=== PATIENT | female | born 1995 | race Caucasian/White ===

== ENCOUNTER 2018-08-08 17:03 | Emergency (ER) | payer OTHER ==
[~2018-08-08] VITALS: Ht 160 cm; Wt 79.5 kg
[2018-08-08] MEDS ORDERED: ALBU8HFA IH (18:11)
[2018-08-08] MEDS: IBUPROFEN 800 MG TABLET PO ONE (19:40)
[2018-08-08 20:52] VITALS: BP 118/78
== END 2018-08-08 20:54 | disposition home or self-care (01) ==
LOC: EMS 17:04
DX: S60.221A Contusion of right hand, initial encounter (principal); S50.02XA Contusion of left elbow, initial encounter; S00.83XA Contusion of other part of head, initial encounter; F10.10 Alcohol abuse, uncomplicated; J45.909 Unspecified asthma, uncomplicated; Y90.9 Presence of alcohol in blood, level not specified; X58.XXXA Exposure to other specified factors, initial encounter; Y93.89 Activity, other specified; Y92.89 Other specified places as the place of occurrence of the external cause; Y99.8 Other external cause status

== ENCOUNTER 2021-10-05 09:53 | Emergency (ER) | payer OTHER ==
[~2021-10-05] VITALS: Ht 160 cm; Wt 84.1 kg
[~2021-10-05 09:53] MED LIST: ALBU8HFA IH
[2021-10-05] MEDS ORDERED: DiphenhydrAMINE HCL 50 MG/ML VIAL IVP ONE (10:00)
[2021-10-05] MEDS ORDERED: SODIUM CHLORIDE 0.9% 1,000 ML IV ONE (10:00)
[2021-10-05] MEDS ORDERED: MethylPREDNISolone SOD SUCC 125 MG/2 ML VIAL IVP ONE (10:00)
[2021-10-05] MEDS ORDERED: FAMOTIDINE 10 MG/ML 2 ML VIAL IVP ONE (10:00)
[2021-10-05 12:14] VITALS: BP 113/61
[2021-10-05] MEDS ORDERED: DIPH25CA85 PO (13:27)
[2021-10-05] MEDS ORDERED: PRED-554 PO (13:27)
== END 2021-10-05 13:40 | disposition home or self-care (01) ==
LOC: EMS 09:53
DX: K12.2 Cellulitis and abscess of mouth (principal)
CPT/HCPCS: 96361; 96374; 96375; 99291; J1200; J2930; J3490; J7030

== ENCOUNTER 2021-12-21 22:42 | Inpatient (IN) | payer OTHER ==
[~2021-12-21] VITALS: Ht 160 cm; Wt 103.6 kg
[~2021-12-21 22:42] MED LIST changes: +DIPH25CA85 PO; +PRED-554 PO
[2021-12-21] MEDS ORDERED: ALBUTEROL SULFATE 5 MG/ML 20 ML NEB SOLN [BULK] NEB ONE (23:15)
[2021-12-21] MEDS ORDERED: IPRATROPIUM BROMIDE 0.5 MG/2.5 ML NEB SOLUTION NEB ONE (23:15)
[2021-12-21 23:26] LABS: COVID AG,FIA SOURCE NASAL SWAB
[2021-12-21] MEDS ORDERED: PredniSONE 20 MG TABLET PO ONE (23:30)
[2021-12-21 23:42] LABS: BASOPHILS % (AUTO) 0.5 % (0.0-2.0); EOSINOPHILS % (AUTO) 0.3 % (1.0-6.0); HEMATOCRIT 36.7 % (36-46); HEMOGLOBIN 12.5 g/dL (12.0-16.0); LYMPHOCYTES # (AUTO) 3.8 K/uL (1.0-4.8); LYMPHOCYTES % (AUTO) 24.3 % (22.0-44.0); MEAN CORPUSCULAR HGB CONC 33.9 G/dL (31.0-37.0); MEAN CORPUSCULAR VOLUME 88 fL (80-100); MONOCYTES # (AUTO) 1.1 K/uL (0.1-1.0); MONOCYTES % (AUTO) 6.9 % (2.0-9.0); NEUTROPHILS # (AUTO) 10.7 K/uL (1.8-7.7); PLATELET COUNT (AUTO) 475 K/uL (150-450); RED BLOOD CELL COUNT(AUTO) 4.16 MIL/uL (4.00-5.20); RED CELL DISTRIBUTION WIDTH 12.6 % (11.5-14.5)
[2021-12-21 23:50] LABS: ANION GAP 9 mmol/L (8-16); CALCIUM, TOTAL 8.8 mg/dL (8.8-10.5); CARBON DIOXIDE 27 mmol/L (22-29); CHLORIDE 102 mmol/L (98-107); GLOMERULAR FILTR. RATE CALC > 60 mL/min (>60); GLUCOSE,RANDOM 102 mg/dL (70-110); POTASSIUM 3.7 mmol/L (3.5-5.1); SODIUM SERUM 138 mmol/L (136-145); UREA NITROGEN, BLOOD 13 mg/dL (7-18)
[2021-12-22] VITALS (10 sets, daily range): BP systolic 101–127; BP diastolic 68–78
[2021-12-22 00:01] LABS: B-TYPE NATRIURETIC PEPTIDE 23 pg/mL (0-100); HCG,QUANTITATIVE < 1 mIU/mL (0-6)
[2021-12-22] MEDS ORDERED: ACETAMINOPHEN 500 MG TABLET PO ONE (00:45)
[2021-12-22] MEDS ORDERED: BENZONATATE 100 MG CAPSULE PO ONE (00:45)
[2021-12-22] MEDS ORDERED: RINGERS SOLUTION,LACTATED 1,000 ML IV ONE ×2 (00:45→03:30)
[2021-12-22] MEDS ORDERED: SODIUM CHLORIDE 0.9% 100 ML ONE (01:24)
[2021-12-22] MEDS ORDERED: IOHEXOL 350 MG/ML 100 ML VIAL ONE (01:30)
[2021-12-22] MEDS ORDERED: IOHEXOL 350 MG/ML 75 ML VIAL ONE (01:30)
[2021-12-22 02:29] LABS: FREE T4 (FREE THYROXINE) 1.2 ng/dL (0.76-1.46); THYROID STIMULATING HORMONE 2.02 uIU/mL (0.36-3.74)
[2021-12-22] MEDS ORDERED: CefTRIAXone SODIUM 2 GM in DEXTROSE 5%-WATER 50 ML IV ONE (04:00)
[2021-12-22] MEDS ORDERED: GuaiFENesin/D-METHORPHAN [SUGAR-FREE] 200-20MG/10 ML SYRUP UDCUP PO ONE (04:00)
[2021-12-22] MEDS ORDERED: RACEPINEPHRINE HCL 2.25% 0.5 ML NEB SOLUTION NEB ONE (04:45)
[2021-12-22] MEDS ORDERED: DEXAMETHASONE SOD PHOS 4 MG/ML VIAL IVP ONE ×2 (04:45→05:45)
[2021-12-22] MEDS ORDERED: VANCOMYCIN HCL 1.5 GM in DEXTROSE 5%-WATER 250 ML IV ONE ×2 (04:45→14:00)
[2021-12-22 05:28] LABS: LACTIC ACID 6.7 mmol/L (0.4-2.0)
[2021-12-22] MEDS ORDERED: SODIUM CHLORIDE 0.9% 1,000 ML IV ONE (05:45)
[2021-12-22] MEDS ORDERED: AMPICILLIN SODIUM/SULBACTAM NA 3 GM in SODIUM CHLORIDE 0.9% 100 ML IV ONE (05:45)
[2021-12-22] MEDS: AMPICILLIN SODIUM/SULBACTAM NA 3 GM in SODIUM CHLORIDE 0.9% 100 ML IV SCH ×3 (09:32→22:21)
[2021-12-22] MEDS: SODIUM CHLORIDE 0.9% 1,000 ML IV SCH ×2 (09:32→18:54)
[2021-12-22] MEDS: DEXAMETHASONE SOD PHOS 4 MG/ML VIAL IVP SCH ×3 (11:18→23:54)
[2021-12-22] MEDS ORDERED: BISACODYL 10 MG RECTAL RECTAL SUPPOSITORY PR PRN (11:30)
[2021-12-22] MEDS ORDERED: ONDANSETRON HCL 4 MG/2 ML VIAL IVP PRN (11:30)
[2021-12-22] MEDS ORDERED: ALBUTEROL SULFATE 2.5 MG/0.5 ML NEB SOLUTION NEB PRN (11:30)
[2021-12-22] MEDS ORDERED: IPRATROPIUM BROMIDE 0.5 MG/2.5 ML NEB SOLUTION NEB PRN (11:30)
[2021-12-22] MEDS: PANTOPRAZOLE SODIUM 40 MG/VIAL IVP SCH (12:23)
[2021-12-22] MEDS ORDERED: VANCOMYCIN HCL 1.25 GM in DEXTROSE 5%-WATER 250 ML IV ONE (14:00)
[2021-12-22] MEDS ORDERED: LIDOCAINE 4% 50 ML SOLUTION TP ONE (18:15)
[2021-12-22] MEDS ORDERED: OXYMETAZOLINE HCL 0.05% 15 ML NASAL SPRAY NASAL ONE (18:15)
[2021-12-22] MEDS: VANCOMYCIN HCL 1 GM in DEXTROSE 5%-WATER 250 ML IV SCH (23:53)
[2021-12-23] MEDS ORDERED: VANCOMYCIN HCL 1 GM/D5% WATER 200 ML IV SCH
[2021-12-23] MEDS: AMPICILLIN SODIUM/SULBACTAM NA 3 GM in SODIUM CHLORIDE 0.9% 100 ML IV SCH ×4 (02:34→21:11)
[2021-12-23 04:49] VITALS: BP 125/69
[2021-12-23] MEDS: DEXAMETHASONE SOD PHOS 4 MG/ML VIAL IVP SCH ×3 (06:18→18:45)
[2021-12-23 07:08] VITALS: BP 124/77
[2021-12-23 08:17] LABS: BASOPHILS % (AUTO) 0.1 % (0.0-2.0); EOSINOPHILS % (AUTO) 0.2 % (1.0-6.0); HEMATOCRIT 35.6 % (36-46); LYMPHOCYTES # (AUTO) 1.4 K/uL (1.0-4.8); LYMPHOCYTES % (AUTO) 6.1 % (22.0-44.0); MEAN CORPUSCULAR HEMOGLOBIN 30.4 pg (26.0-34.0); MEAN CORPUSCULAR HGB CONC 33.9 G/dL (31.0-37.0); MEAN CORPUSCULAR VOLUME 90 fL (80-100); MONOCYTES # (AUTO) 0.6 K/uL (0.1-1.0); MONOCYTES % (AUTO) 2.7 % (2.0-9.0); NEUTROPHILS # (AUTO) 20.4 K/uL (1.8-7.7); PLATELET COUNT (AUTO) 463 K/uL (150-450); RED BLOOD CELL COUNT(AUTO) 3.96 MIL/uL (4.00-5.20); RED CELL DISTRIBUTION WIDTH 12.8 % (11.5-14.5)
[2021-12-23 08:19] LABS: NEUTROPHILS % (AUTO) 90.9 % (40.0-70.0)
[2021-12-23 08:28] LABS: APPEARANCE,URINE CLEAR (CLEAR); BILIRUBIN,URINE NEGATIVE (NEGATIVE); GLUCOSE, URINE (UA) NEGATIVE (NEGATIVE); KETONES,URINE NEGATIVE (NEGATIVE); LEUKOCYTE ESTERASE ,URINE NEGATIVE (NEGATIVE); NITRATE,URINE NEGATIVE (NEGATIVE); OCCULT BLOOD,URINE NEGATIVE (NEGATIVE); PH,URINE 6.5 (5.0-8.0); PROTEIN,URINE NEGATIVE (NEGATIVE); SPECIFIC GRAVITIY, URINE 1.014 (1.003-1.030); UROBILINOGEN,URINE <=1.0 mg/dL (<=1.0)
[2021-12-23 08:34] LABS: AMPHET/METH SCREEN,URINE POSITIVE (NEGATIVE); BARBITURATE SCREEN, URINE NEGATIVE (NEGATIVE); BENZODIAZEPINES SCREEN,URINE NEGATIVE (NEGATIVE); CANNABINOID SCREEN,URINE NEGATIVE (NEGATIVE); COCAINE SCREEN,URINE NEGATIVE (NEGATIVE); METHADONE SCREEN, URINE NEGATIVE (NEGATIVE); OPIATE SCREEN,URINE NEGATIVE (NEGATIVE); PHENCYCLIDINE SCREEN,URINE NEGATIVE (NEGATIVE)
[2021-12-23 08:43] LABS: ALANINE AMINOTRANSFERASE 20 U/L (12-78); ALBUMIN 3.1 g/dL (3.4-5.0); ALKALINE PHOSPHATASE 96 U/L (46-116); ANION GAP 8 mmol/L (8-16); ASPARTATE AMINOTRANSFERASE 16 U/L (15-37); BILIRUBIN,TOTAL 0.2 mg/dL (0.1-1.0); CALCIUM, TOTAL 8.9 mg/dL (8.8-10.5); CARBON DIOXIDE 25 mmol/L (22-29); CHLORIDE 105 mmol/L (98-107); CREATININE 0.76 mg/dL (0.60-1.30); GLOMERULAR FILTR. RATE CALC > 60 mL/min (>60); GLUCOSE,RANDOM 139 mg/dL (70-110); POTASSIUM 4.1 mmol/L (3.5-5.1); SODIUM SERUM 138 mmol/L (136-145); TOTAL PROTEIN, SERUM 7.3 g/dL (6.4-8.2); UREA NITROGEN, BLOOD 15 mg/dL (7-18)
[2021-12-23] MEDS: VANCOMYCIN HCL 1 GM in DEXTROSE 5%-WATER 250 ML IV SCH ×2 (08:48→16:05)
[2021-12-23 08:49] LABS: BACTERIA,URINE None Seen /HPF (None Seen); RBC,URINE None Seen /HPF (0-2); WBC,URINE None Seen /HPF (0-5)
[2021-12-23] MEDS: PANTOPRAZOLE SODIUM 40 MG/VIAL IVP SCH (08:49)
[2021-12-23 11:31] VITALS: BP 117/66
[2021-12-23 15:37] VITALS: BP 118/70
[2021-12-23] MEDS: SODIUM CHLORIDE 0.9% 1,000 ML IV SCH ×2 (16:06→16:09)
[2021-12-23 20:17] VITALS: BP 118/74
[2021-12-23] MEDS: ACETAMINOPHEN 325 MG TABLET PO PRN (21:11)
[2021-12-23] MEDS ORDERED: ACETAMINOPHEN 325 MG TABLET PO ONE (21:30)
[2021-12-23] MEDS ORDERED: MELATONIN 3 MG TABLET PO PRN (21:30)
[2021-12-24] MEDS: VANCOMYCIN HCL 1 GM in DEXTROSE 5%-WATER 250 ML IV SCH ×2 (00:24→07:56)
[2021-12-24] MEDS: SODIUM CHLORIDE 0.9% 1,000 ML IV SCH ×2 (00:24→10:54)
[2021-12-24] MEDS: DEXAMETHASONE SOD PHOS 4 MG/ML VIAL IVP SCH ×3 (00:24→12:00)
[2021-12-24 00:48] VITALS: BP 117/72
[2021-12-24] MEDS: AMPICILLIN SODIUM/SULBACTAM NA 3 GM in SODIUM CHLORIDE 0.9% 100 ML IV SCH ×2 (03:06→10:08)
[2021-12-24 06:00] VITALS: BP 129/82
[2021-12-24 07:32] LABS: BASOPHILS % (AUTO) 0.1 % (0.0-2.0); EOSINOPHILS % (AUTO) 0 % (1.0-6.0); HEMATOCRIT 37.7 % (36-46); HEMOGLOBIN 12.5 g/dL (12.0-16.0); LYMPHOCYTES # (AUTO) 1.6 K/uL (1.0-4.8); MEAN CORPUSCULAR HGB CONC 33.1 G/dL (31.0-37.0); MEAN CORPUSCULAR VOLUME 91 fL (80-100); MONOCYTES # (AUTO) 0.7 K/uL (0.1-1.0); MONOCYTES % (AUTO) 2.7 % (2.0-9.0); PLATELET COUNT (AUTO) 469 K/uL (150-450); RED BLOOD CELL COUNT(AUTO) 4.15 MIL/uL (4.00-5.20); RED CELL DISTRIBUTION WIDTH 12.8 % (11.5-14.5)
[2021-12-24 07:34] LABS: NEUTROPHILS % (AUTO) 91.2 % (40.0-70.0)
[2021-12-24 07:37] VITALS: BP 113/68
[2021-12-24 07:47] LABS: ANION GAP 8 mmol/L (8-16); CALCIUM, TOTAL 8.1 mg/dL (8.8-10.5); CARBON DIOXIDE 23 mmol/L (22-29); CHLORIDE 102 mmol/L (98-107); CREATININE 0.81 mg/dL (0.60-1.30); GLOMERULAR FILTR. RATE CALC > 60 mL/min (>60); GLUCOSE,RANDOM 202 mg/dL (70-110); POTASSIUM 3.4 mmol/L (3.5-5.1); SODIUM SERUM 133 mmol/L (136-145); UREA NITROGEN, BLOOD 15 mg/dL (7-18); VANCOMYCIN,RANDOM 11.9 mcg/mL (25.0-50.0)
[2021-12-24] MEDS: PANTOPRAZOLE SODIUM 40 MG/VIAL IVP SCH (07:55)
[2021-12-24] MEDS: ACETAMINOPHEN 325 MG TABLET PO PRN (10:50)
[2021-12-24 11:42] LABS: GLUCOMETER DEV NAME(LOC) 5S.2B; GLUCOSE,POINT OF CARE 144 MG/DL (70-110)
[2021-12-24 11:49] VITALS: BP 133/82
[2021-12-24] MEDS ORDERED: POTASSIUM CHLORIDE 20 MEQ ER TABLET PO ONE (12:15)
[2021-12-24] MEDS ORDERED: PredniSONE 20 MG TABLET PO SCH (12:15)
[2021-12-24] MEDS ORDERED: PRED-554 PO (12:19)
[2021-12-24] MEDS ORDERED: AMOX1TAB16 PO (12:20)
[2021-12-24] MEDS ORDERED: VANCOMYCIN HCL 1.25 GM in DEXTROSE 5%-WATER 250 ML IV SCH (16:00)
== END 2021-12-24 14:00 | disposition home or self-care (01) | DRG 720 ==
LOC: EMS 22:50 → ICUN 12-22 11:04 → 5S 12-22 21:07
PROVIDERS: ADMIT Internal Medicine; ATTEND Internal Medicine
DX: A41.9 Sepsis, unspecified organism (principal); J96.00 Acute respiratory failure, unspecified whether with hypoxia or hypercapnia; E87.2 Acidosis; Z20.822 Contact with and (suspected) exposure to COVID-19; J04.10 Acute tracheitis without obstruction; J45.909 Unspecified asthma, uncomplicated; J02.9 Acute pharyngitis, unspecified; R65.20 Severe sepsis without septic shock; D64.9 Anemia, unspecified; G43.909 Migraine, unspecified, not intractable, without status migrainosus; Z90.49 Acquired absence of other specified parts of digestive tract; J35.02 Chronic adenoiditis
CPT/HCPCS: 70491; 71045; 71275; 80048; 80053; 80202; 81001; 82962; 83605; 83880; 84145; 84439; 84443; 84484; 84702; 85025; 85379; 87040; 87081; 93005; 99291; C9113; J0295; J0696; J1100; J3370; J7030; J7050; J7060; J7120; Q9967; 36415-L1; 36415-TC; J7611; U0003; Z7610